=== PATIENT | male | born 1970 | race Caucasian/White ===

== ENCOUNTER → 2021-10-22 10:51 | Outpatient (BNVA) | payer BC, SELFPAY | PROVIDERS: Visit Provider Family Medicine | DX: I10 Essential (primary) hypertension (principal); E11.9 Type 2 diabetes mellitus without complications; E78.00 Pure hypercholesterolemia, unspecified; Z12.5 Encounter for screening for malignant neoplasm of prostate | CPT/HCPCS: 80053; 80061; 83036; 84443; 85025; G0103 ==

== ENCOUNTER → 2022-01-28 09:09 | Outpatient (BNVA) | payer BC, SELFPAY | PROVIDERS: PCP Family Medicine; Visit Provider Family Medicine | DX: E78.00 Pure hypercholesterolemia, unspecified (principal); E11.9 Type 2 diabetes mellitus without complications; I10 Essential (primary) hypertension | CPT/HCPCS: 80053; 80061; 83036; 83721; 85025 ==

== ENCOUNTER → 2022-05-27 09:10 | Outpatient (BNVA) | payer BC, SELFPAY | PROVIDERS: PCP Family Medicine; Visit Provider Family Medicine | DX: E11.9 Type 2 diabetes mellitus without complications (principal); E78.00 Pure hypercholesterolemia, unspecified; I10 Essential (primary) hypertension | CPT/HCPCS: 80053; 80061; 83036; 84443; 85025 ==